=== PATIENT | male | born 1955 | race Caucasian/White ===

== ENCOUNTER 2025-07-16 15:24 | Emergency (ER) | payer OTHER, MEDICAID ==
[~2025-07-16] VITALS: Ht 188 cm; Wt 113.4 kg
[2025-07-16] MEDS ORDERED: HYDROCODONE/APAP 5/325MG TABLET ONE (18:36)
[2025-07-16] MEDS: HYDROCODONE/APAP 5/325MG TABLET PO ONE (18:40)
[2025-07-16] MEDS ORDERED: ACETAMINOPHEN 325 MG TABLET PO PRN (20:00)
[2025-07-16] MEDS ORDERED: MAG HYDROX/AL HYDROX/SIMETH 30 ML UDC PO PRN (20:00)
[2025-07-16] MEDS ORDERED: ONDANSETRON HCL/PF 4 MG/2 ML VIAL IVP PRN (20:00)
[2025-07-16] MEDS ORDERED: MAGNESIUM HYDROXIDE 30 ML UDC PO PRN (20:00)
[2025-07-16] MEDS ORDERED: HYDROCODONE/APAP 5/325MG TABLET PO PRN (20:00)
[2025-07-16] MEDS ORDERED: HYDROCODONE/APAP 10/325MG TABLET PO PRN (20:00)
[2025-07-16 22:48] VITALS: BP 149/80; TEMP 98; O2SAT 97
[2025-07-17] MEDS ORDERED: PANTOPRAZOLE 40 MG TABLET.DR PO SCH (07:30)
== END 2025-07-16 22:49 | disposition left against medical advice (07) ==
LOC: ER 15:30
DX: S22.31XA Fracture of one rib, right side, initial encounter for closed fracture (principal); S27.329A Contusion of lung, unspecified, initial encounter; M25.532 Pain in left wrist; R06.02 Shortness of breath; R51.9 Headache, unspecified; I11.0 Hypertensive heart disease with heart failure; I50.9 Heart failure, unspecified; E78.5 Hyperlipidemia, unspecified; E11.9 Type 2 diabetes mellitus without complications; E66.9 Obesity, unspecified; Z68.32 Body mass index [BMI] 32.0-32.9, adult; Z79.01 Long term (current) use of anticoagulants; Z95.0 Presence of cardiac pacemaker; Z95.2 Presence of prosthetic heart valve; V43.52XA Car driver injured in collision with other type car in traffic accident, initial encounter; Y93.89 Activity, other specified; Y92.488 Other paved roadways as the place of occurrence of the external cause; Y99.8 Other external cause status
CPT/HCPCS: 70450-TC; 71250-TC; 73110